=== PATIENT | female | born 1975 | race Caucasian/White ===

== ENCOUNTER 2017-03-07 09:41 | Emergency (ER) | END 2017-03-07 11:45 | disposition home or self-care (01) ==

== ENCOUNTER 2017-03-19 00:09 | Emergency (ER) | END 2017-03-19 03:57 | disposition home or self-care (01) ==

== ENCOUNTER 2017-05-19 19:05 | Emergency (ER) | END 2017-05-20 02:00 | disposition left against medical advice (07) ==

== ENCOUNTER 2017-05-22 11:04 | Emergency (ER) | END 2017-05-22 17:20 | disposition home or self-care (01) ==

== ENCOUNTER 2017-05-24 20:43 | Emergency (ER) | END 2017-05-24 23:55 | disposition home or self-care (01) ==

== ENCOUNTER 2017-06-04 03:54 | Emergency (ER) | END 2017-06-04 07:01 | disposition home or self-care (01) ==

== ENCOUNTER 2017-06-28 15:54 | Emergency (ER) | END 2017-06-28 17:21 | disposition home or self-care (01) ==

== ENCOUNTER 2017-07-10 19:18 | Emergency (ER) | END 2017-07-11 00:15 | disposition left against medical advice (07) ==

== ENCOUNTER 2018-07-08 02:14 | Emergency (ER) | payer SELFPAY ==
[~2018-07-08] VITALS: Ht 162.6 cm; Wt 70.0 kg
[~2018-07-08 02:14] MED LIST: ACET500C5 PO; AZIT250T PO; CETI10CA PO; CYCL10TA7 PO; CYCL5TAB PO; DOXY100T20 PO; FLUT9.9S NASAL; GUAI-173 PO; GUAI5SYR2 PO; HYDR-4011 PO; IBUP-1542 PO; IBUP-1561 PO; MED4DP PO; NAPR-985 PO; PRED20TA PO
[2018-07-08 02:19] VITALS: BP 120/78; PULSE 100; RESP 20; Ht 162.6 cm; Wt 70.0 kg
[2018-07-08] MEDS ORDERED: KETOROLAC 30 MG INJ IM STA (03:24)
[2018-07-08] MEDS ORDERED: ONDANSETRON (ODT) 4 MG TAB ODT STA (03:24)
[2018-07-08] MEDS ORDERED: HYDROCODONE/APAP (5/325) TAB PO ONE (03:30)
[2018-07-08] MEDS ORDERED: TRAM50TA2 PO (05:03)
[2018-07-08] MEDS ORDERED: IBUP-1542 PO (05:03)
--- NOTE | 2018-07-08 05:07 | ERD ---
ER Documentation Chief Complaint Chief Complaint lower back pain radiating to left leg x 2 months. denies trauma HPI 43-year-old female presents with low back pain rating the left leg for last 2 months although worse over the last 2 days. She denies any history of trauma. She has no fevers, urinary complaints, weakness, bowel or bladder incontinence, anesthesia. ROS All systems reviewed and are negative except as per history of present illness. Medications Home Meds Active Scripts Ibuprofen* (Motrin*) 600 Mg Tab, 600 MG PO Q6, #30 TAB Prov:JUDITH SHANKS MD 07/08/18 Tramadol HCl (Tramadol HCl) 50 Mg Tablet, 50 MG PO Q4 PRN for PAIN, #18 TAB Prov:JUDITH SHANKS MD 07/08/18 Naproxen* (Naprosyn*) 500 Mg Tablet, 500 MG PO BID PRN for PAIN AND/OR INFLAMMATION, #30 TAB Prov:HOLDEN LYLES PA-C 07/10/17 Cyclobenzaprine Hcl* (Cyclobenzaprine Hcl*) 5 Mg Tablet, 5 MG PO Q8H PRN for PAIN, #60 TAB Prov:CONCEPCION HWANG PA-C 06/04/17 Ibuprofen* (Motrin*) 400 Mg Tab, 400 MG PO Q6H PRN for PAIN AND OR ELEVATED TEMP, #30 TAB Prov:CONCEPCION HWANG PA-C 06/04/17 Hydrocodone/Acetaminophen ([place] 5-325 Tablet) 1 Each Tablet, 1 TAB PO Q6H PRN for SEVERE PAIN LEVEL 7-10, #20 TAB Prov:NORMA RUDOLPH NP 05/24/17 Prednisone* (Prednisone*) 20 Mg Tab, 60 MG PO DAILY for 5 Days, TAB Prov:NORMA RUDOLPH NP 05/24/17 Cyclobenzaprine Hcl* (Cyclobenzaprine Hcl*) 10 Mg Tablet, 10 MG PO TID, #30 TAB Prov:SEAN PERALES PA-C 05/22/17 Naproxen* (Naprosyn*) 500 Mg Tablet, 500 MG PO BID PRN for PAIN AND/OR INFLAMMATION, #30 TAB Prov:SEAN PERALES PA-C 05/22/17 Ibuprofen* (Motrin*) 600 Mg Tab, 600 MG PO Q6, #30 TAB Prov:VINNY HINESC 05/19/17 Methylprednisolone* (Medrol* DOSE PACK) 4 Mg/Dose-Pack Tab.ds.pk, 4 MG PO . DIRECTED for 6 Days, PACKET Prov:ARNULFO DUFF Rani 03/19/17 Guaifenesin* (Tussin*) 100 Mg/5 Ml Syrup, 200 MG PO Q6 PRN for COUGH for 5 Days, ML Prov:ARNULFO DUFF Rani 03/19/17 Doxycycline Hyclate* (Doxycycline Hyclate*) 100 Mg Tablet.dr, 100 MG PO BID for 10 Days, TAB Prov:ARNULFO DUFF Rani 03/19/17 Guaifenesin-Dextromethorphan* (Robitussin* DM) 100MG/10MG/5ML Syrup, 10 ML PO Q6H PRN for COUGH for 5 Days, ML Prov:JOEY ALLISONC 03/07/17 Fluticasone Propionate (Flonase Allergy Relief) 9.9 Ml [place].susp, 2 SPRAY NASAL DAILY, #1 BOTTLE TO EACH NOSTRIL Prov:JOEY ALLISONC 03/07/17 Cetirizine Hcl* (Zyrtec*) 10 Mg Capsule, 10 MG PO DAILY, #14 TAB.CHEW Prov:JOEY ALLISON-C 03/07/17 Acetaminophen* (Tylophen*) 500 Mg Capsule, 1 CAP PO Q6H PRN for PAIN AND OR ELEVATED TEMP, #30 CAP Prov:JOEY ALLISONC 03/07/17 Ibuprofen* (Motrin*) 600 Mg Tab, 600 MG PO Q6, #30 TAB Prov:JOEY ALLISON-C 03/07/17 Azithromycin* (Zithromax*) 250 Mg Tablet, 250 MG PO .ZhenPACK DIRECTED, #6 TAB TAKE 500 MG (2 TABS) THE FIRST DAY THEN 250 MG (1 TAB) DAYS 2-5 Prov:JOEY ALLISON-C 03/07/17 Allergies Allergies: Coded Allergies: meperidine (Verified Allergy, Intermediate, itching and rashes, 05/22/17) PMhx/Soc History of Surgery: Yes (tubal ligation) Anesthesia Reaction: No Hx Neurological Disorder: No Hx Respiratory Disorders: No Hx Cardiac Disorders: No Hx Psychiatric Problems: No Hx Miscellaneous Medical Probl: No Hx Alcohol Use: No Hx Substance Use: No Hx Tobacco Use: No Smoking Status: Never smoker FmHx Family History: No diabetes, No coronary disease, No other Physical Exam Vitals Vital Signs Date Temp Pulse Resp B/P (MAP) Pulse Ox O2 O2 Flow FiO2 Time Delivery Rate 07/08/18 98.5 100 20 120/78 98 02:19 (92) Physical Exam Const: No acute distress Head: Atraumatic Eyes: Normal Conjunctiva ENT: Normal External Ears, Nose and Mouth. Neck: Full range of motion. No meningismus. Resp: Clear to auscultation bilaterally Cardio: Regular rate and rhythm, no murmurs Abd: Soft, non tender, non distended. Normal bowel sounds Skin: No petechiae or rashes Back: No midline or flank tenderness. Tenderness over the left L4-5 paraspinous area positive straight leg raise. Ext: No cyanosis, or edema Neur: Awake and alert Psych: Normal Mood and Affect Results 24 hrs Laboratory Tests Test 07/08/18 03:43 POC Beta HCG, Qualitative NEGATIVE Current Medications Medications Dose Sig/Ricardo Start Time Status Last (Trade) Ordered Route PRN Stop Time Admin Dose Reason Admin Ketorolac 30 mg ONCE STAT 07/08/18 DC 07/08/18 Tromethamine IM 03:24 07/08/18 03:57 (Toradol) 03:25 1 tab ONCE ONCE 07/08/18 DC 07/08/18 Acetaminophen PO 03:30 07/08/18 03:57 / 03:31 Hydrocodone Bitart ([place] (5/325)) Ondansetron 8 mg ONCE STAT 07/08/18 DC 07/08/18 HCl (Zofran ODT 03:24 07/08/18 03:57 Odt) 03:25 Procedures/MDM Patient presents with signs and symptoms of sciatica. Spouse is requesting radiologic studies. He he wants the test where she sits in a "tube". Patient was given Toradol 30 mg IM and [place] 5 mg by mouth. X-ray LS-Spine 3V Interpreted by me: Bones: No fracture, or lytic lesions Joints: No dislocation Foreign body: None impression-normal lumbar spine x-ray Patient has no signs of cauda equina syndrome, epidural abscess, deficits, ischemia, infection, additional concerning signs or symptoms. She will be treated with tramadol, ibuprofen, instructions for back exercises, recommendations for primary care follow-up and further evaluation study for persistent symptoms despite treatment and conservative measures. She should return for fevers, vomiting, weakness, pain, new worsening symptoms with primary care doctor. The patient was stable with no new complaints during the ER course. Clinically, there is no current evidence to suggest meningitis, sepsis, acute abdomen, pneumonia, stroke, acute coronary syndrome, pulmonary embolism, aortic dissection or any other emergent condition appearing to require further evaluation or hospitalization. Patient counseled regarding my diagnostic impression and care plan. Prior to discharge all questions answered. Pt agrees with treatment plan and understands strict return precautions. Pt is instructed to follow up with primary care provider within 24-48 hours. Precautionary instructions provided including instructions to return to the ER if not improving or for any worsening or changing symptoms or concerns. Disclaimer: Inadvertent spelling and grammatical errors are likely due to EHR/ dictation software use and do not reflect on the overall quality of patient care. Also, please note that the electronic time recorded on this note does not necessarily reflect the actual time of the patient encounter. Departure Diagnosis: Primary Impression: Back pain Back pain location: low back pain Chronicity: acute Back pain laterality: left Sciatica presence: with sciatica Sciatica laterality: sciatica of left side Qualified Codes: M54.42 - Lumbago with sciatica, left side Condition: Stable Patient Instructions: Back Pain W/ Sciatica Referrals: NO PRIMARY,CARE PHYSICIAN (PCP) Additional Instructions: x ray normal. recomiendo chan doctor primario para mas evaluation. recommiendo therapy physico. regresa audrey wolffa simptomas. JUDITH SHANKS MD Jul 08, 2018 05:07
== END 2018-07-08 05:33 | disposition home or self-care (01) ==
LOC: FTE 02:14
DX: M54.5 Low back pain (principal)
CPT/HCPCS: 72100; 81025; 96372; 99284; J1885

== ENCOUNTER 2018-08-12 14:19 | Emergency (ER) | payer SELFPAY ==
[~2018-08-12] VITALS: Ht 152.4 cm; Wt 71.5 kg
[~2018-08-12 14:19] MED LIST changes: +TRAM50TA2 PO
[2018-08-12 14:23] VITALS: BP 116/70; PULSE 91; RESP 20; Ht 152.4 cm; Wt 71.5 kg
[2018-08-12] MEDS ORDERED: KETOROLAC 60 MG INJ IM STA (14:46)
--- NOTE | 2018-08-12 14:54 | ERD ---
ER Documentation Chief Complaint Chief Complaint c/o lower back pain radiating to both legs x1 month HPI 43-year-old female with history of chronic back pain and disc bulge presents with complaint of lower back pain radiating down to her legs. She states she also has a history of sciatica. Patient is ambulatory. States that when she was here last time she got a shot that helped the pain. States she does not have a doctor. Denies chest pain, SOB, flank pain, dsyuria, hematuria, saddle numbness, incontinence, pain worse at night or when supine, weight loss, night sweats, fatigue, focal neurological defecits, recent bacterial infection, IV drug use, or immunosuppression. Denies past medical history. Denies allergies. Denies surgeries. Denies ETOH, drug, or tobacco use. ROS All systems reviewed and are negative except as per history of present illness. Medications Home Meds Active Scripts Ibuprofen* (Motrin*) 600 Mg Tab, 600 MG PO Q6, #30 TAB Prov:JUDITH SHANKS MD 07/08/18 Tramadol HCl (Tramadol HCl) 50 Mg Tablet, 50 MG PO Q4 PRN for PAIN, #18 TAB Prov:JUDITH SHANKS MD 07/08/18 Naproxen* (Naprosyn*) 500 Mg Tablet, 500 MG PO BID PRN for PAIN AND/OR INFLAMMATION, #30 TAB Prov:HOLDEN LYLES PA-C 07/10/17 Cyclobenzaprine Hcl* (Cyclobenzaprine Hcl*) 5 Mg Tablet, 5 MG PO Q8H PRN for PAIN, #60 TAB Prov:CONCEPCION HWANG PA-C 06/04/17 Ibuprofen* (Motrin*) 400 Mg Tab, 400 MG PO Q6H PRN for PAIN AND OR ELEVATED TEMP, #30 TAB Prov:CONCEPCION HWANG PA-C 06/04/17 Hydrocodone/Acetaminophen ([place] 5-325 Tablet) 1 Each Tablet, 1 TAB PO Q6H PRN for SEVERE PAIN LEVEL 7-10, #20 TAB Prov:NORMA RUDOLPH NP 05/24/17 Prednisone* (Prednisone*) 20 Mg Tab, 60 MG PO DAILY for 5 Days, TAB Prov:NORMA RUDOLPH NP 05/24/17 Cyclobenzaprine Hcl* (Cyclobenzaprine Hcl*) 10 Mg Tablet, 10 MG PO TID, #30 TAB Prov:SEAN PERALESC 05/22/17 Naproxen* (Naprosyn*) 500 Mg Tablet, 500 MG PO BID PRN for PAIN AND/OR INFLAMMATION, #30 TAB Prov:SEAN PERALESC 05/22/17 Ibuprofen* (Motrin*) 600 Mg Tab, 600 MG PO Q6, #30 TAB Prov:VINNY HINES PA-C 05/19/17 Methylprednisolone* (Medrol* DOSE PACK) 4 Mg/Dose-Pack Tab.ds.pk, 4 MG PO . DIRECTED for 6 Days, PACKET Prov:ARNULFO DUFF 03/19/17 Guaifenesin* (Tussin*) 100 Mg/5 Ml Syrup, 200 MG PO Q6 PRN for COUGH for 5 Days, ML Prov:ARNULFO DUFF 03/19/17 Doxycycline Hyclate* (Doxycycline Hyclate*) 100 Mg Tablet.dr, 100 MG PO BID for 10 Days, TAB Prov:ARNULFO DUFF 03/19/17 Guaifenesin-Dextromethorphan* (Robitussin* DM) 100MG/10MG/5ML Syrup, 10 ML PO Q6H PRN for COUGH for 5 Days, ML Prov:JOEY ALLISON PA-C 03/07/17 Fluticasone Propionate (Flonase Allergy Relief) 9.9 Ml [place].susp, 2 SPRAY NASAL DAILY, #1 BOTTLE TO EACH NOSTRIL Prov:JOEY ALLISON PA-C 03/07/17 Cetirizine Hcl* (Zyrtec*) 10 Mg Capsule, 10 MG PO DAILY, #14 TAB.CHEW Prov:JOEY ALLISON PA-C 03/07/17 Acetaminophen* (Tylophen*) 500 Mg Capsule, 1 CAP PO Q6H PRN for PAIN AND OR ELEVATED TEMP, #30 CAP Prov:JOEY ALLISONC 03/07/17 Ibuprofen* (Motrin*) 600 Mg Tab, 600 MG PO Q6, #30 TAB Prov:JOEY ALLISONC 03/07/17 Azithromycin* (Zithromax*) 250 Mg Tablet, 250 MG PO .ZhenPACK DIRECTED, #6 TAB TAKE 500 MG (2 TABS) THE FIRST DAY THEN 250 MG (1 TAB) DAYS 2-5 Prov:JOEY ALLISON PA-C 03/07/17 Allergies Allergies: Coded Allergies: meperidine (Verified Allergy, Intermediate, itching and rashes, 08/12/18) PMhx/Soc History of Surgery: Yes (tubal ligation) Anesthesia Reaction: No Hx Neurological Disorder: No Hx Respiratory Disorders: No Hx Cardiac Disorders: No Hx Psychiatric Problems: No Hx Miscellaneous Medical Probl: No Hx Alcohol Use: No Hx Substance Use: No Hx Tobacco Use: No FmHx Family History: No diabetes, No coronary disease, No other Physical Exam Vitals Vital Signs Date Temp Pulse Resp B/P (MAP) Pulse Ox O2 O2 Flow FiO2 Time Delivery Rate 08/12/18 97.7 91 20 116/70 95 14:23 (85) Physical Exam Const: No acute distress Head: Atraumatic Eyes: Normal Conjunctiva ENT: Normal External Ears, Nose and Mouth. Neck: Full range of motion. No meningismus. Resp: Clear to auscultation bilaterally Cardio: Regular rate and rhythm, no murmurs Abd: Soft, non tender, non distended. Normal bowel sounds Skin: No petechiae or rashes Back: No midline or flank tenderness. Positive straight leg raise bilaterally. Impaired flexion. No bony deformities or step-offs noted. Ext: No cyanosis, or edema. No saddle numbness. 5 out of 5 strength in lower extremity's. Distal pulses and sensations intact. Neur: Awake and alert Psych: Normal Mood and Affect Results 24 hrs Current Medications Medications Dose Sig/Ricardo Start Time Status Last (Trade) Ordered Route PRN Stop Time Admin Dose Reason Admin Ketorolac 60 mg ONCE STAT 08/12/18 DC Tromethamine IM 14:46 08/12/18 (Toradol) 14:48 Prednisone 60 mg ONCE ONCE 08/12/18 (Prednisone) PO 15:00 08/12/18 15:01 Procedures/MDM MDM: Patient was given Toradol as well as prednisone in the ER. Patient discharged with a 3-day course of prednisone as well as [place] For breakthrough pain. Patient's presentation is not consistent with cauda equina. There is no saddle numbness, weakness, or incontinence. I have low suspicion for epidural abscess, cauda equina, abdominal aortic aneurysm, pyelonephritis, aortic disse ction, spinal fracture, or other emergent conditions based on patient history and exam findings. Patient told if they experience leg weakness or numbness, or incontinence they need to return to the ER immediately. patient was advised that she needs to your primary care doctor for referral to an orthopedist. She has chronic back pain this needs to be managed on outpatient basis. At this time, patient is stable for discharge and outpatient management. I have instructed the patient to follow-up with his/her primary care physician in 1-2 days. I have discussed with the patient the possibility of needing to see a specialist for further workup and imaging studies if symptoms persist. I have instructed the patient to promptly return to the ER for any new or worsening symptoms including but not limited to increased pain, fever, nausea, vomiting, weakness or LOC. The patient and/or family expressed understanding of and agreement with this plan. All questions were answered. Home care instructions were provided. Communication with patient both during the exam and instructions for discharge were performed with using a chief design engineer . Patient gave verbal confirmation to the practitioner, through the chief design engineer, that they understood everythign that was being said to them. DISCLAIMER: Inadvertent spelling and grammatical errors are likely due to EHR/dictation software use and do not reflect on the overall quality of patient care. Also, please note that the electronic time recorded on this note does not necessarily reflect the actual time of the patient encounter. Departure Diagnosis: Primary Impression: Back pain Condition: Stable HOLDEN OLIVIER Aug 12, 2018 14:54
[2018-08-12] MEDS ORDERED: HYDR-4011 PO (14:55)
[2018-08-12] MEDS ORDERED: PRED20TA PO (14:55)
[2018-08-12] MEDS ORDERED: predniSONE 20 MG TAB PO ONE (15:00)
== END 2018-08-12 15:40 | disposition home or self-care (01) ==
LOC: FTE 14:19
DX: M54.5 Low back pain (principal)
CPT/HCPCS: 81003; 81025; 96372; 99284; J1885; J7512